=== PATIENT | male | born 1965 | race Caucasian/White ===

== ENCOUNTER 2022-07-12 23:31 | Emergency (ER) | payer BC, SELFPAY ==
[2022-07-12 23:39] VITALS: BP 156/92; PULSE 107; RESP 18; O2SAT 97
--- NOTE | 2022-07-12 23:50 | PC.NURSE ---
Patient provided with orange juice, coca-cola, crackers. BG 210. Patient with personal BG monitor and is monitoring sugar. Patient states he will alert staff if his sugars drop. MD aware of blood sugar and amount of insulin given.
--- NOTE | 2022-07-13 00:40 | PC.NURSE ---
Per brianna Lambert for patient to use personal blood glucose monitoring device.
--- NOTE | 2022-07-13 00:57 | ED_ITS ---
HPI - Male Genitourinary General Chief complaint: Diabetic Related Problem Stated complaint: Diabetic, took wrong insulin Time Seen by Provider: 07/12/22 23:49 History of Present Illness HPI Narrative: Patient presents after accidentally taking 44 units of his NovoLog instead of his Lantus. Patient states that he is typically very careful with this and has only made this mistake once previously. He had significant hypoglycemia after doing so in the past, therefore he presents to the emergency department out of concern that this will happen again. Blood sugar was approximately 250 at dinner time, which was about 2 hours prior to accidentally taking the higher dose of insulin. He typically does 3 times daily of his NovoLog with meals and 44 units of Lantus daily. Patient has a continuous glucose monitor. He had a typical dinner about 3 hours prior to taking the insulin. No recent illness, no fevers. No neurological changes noted. He is accompanied by his significant other. He has type 1 diabetes, no insulin resistance. 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 He has several other members of his family with type 1 diabetes. Blood sugar in triage was 211. No recent hypoglycemia. He does not also have an insulin pump. Past medical history is really only notable for the type 1 diabetes, no other major long-term health problems. Medications reviewed and updated, consistent with a line records. No history of significant heart disease, neurological disorders. Related Data Home Medications Medication Instructions Recorded Confirmed amitriptyline 25 mg tablet mg 07/12/22 atorvastatin 20 mg tablet mg 07/12/22 insulin aspart U-100 100 unit/mL subcut 07/12/22 (3 mL) subcutaneous pen (Novolog Flexpen U-100 Insulin aspart) insulin glargine 100 unit/mL (3 unit subcut 07/12/22 mL) subcutaneous pen (Lantus Solostar U-100 Insulin) lisinopril 5 mg tablet mg 07/12/22 sildenafil 100 mg tablet mg 07/12/22 Allergies Allergy/AdvReac Type Severity Reaction Status Date / Time Penicillins Allergy Verified 07/12/22 23:43 [facility] Social History Smoking Status: Never smoker How often do you have a drink containing alcohol: 2-3 times a week How many standard drinks containing alcohol do you have on a typical day: 3 or 4 How often do you have six or more drinks on one occasion: Never AUDIT-C Alcohol total score: 4 Non-prescribed substance use: denies use Exam Const: Vital Signs, click to edit/add: Vital Signs - 24 hr 07/12/22 23:39 Pulse Rate [Right Pulse Oximeter] 107 H Respiratory Rate 18 Blood Pressure [Ri ght Upper Arm] 156/92 H Pulse Oximetry 97 Oxygen Delivery Me thod Room Air Documenting provider has reviewed patient's vital signs: yes Common normals: no apparent distress and alert General appearance: cooperative Orientation/consciousness: Yes awake HENMT: Common normals: normocephalic Head and scalp: normocephalic Mouth: oral and palatal mucosa normal Eye: Common normals: EOMs intact bilaterally and conjunctivae normal Conjunctiva: conjunctiva(e) normal Neck & C-Spine: Common normals: full ROM and no lymphadenopathy Resp: Common normals: normal respiratory effort and clear to auscultation bilaterally Effort & inspection: able to speak in complete sentences Auscultation: clear to auscultation bilaterally Cardio: Common normals: regular rate, regular rhythm, no murmurs and peripheral pulses 2+ throughout Rate: regular rate Rhythm: regular rhythm Peripheral pulses: pulses 2+ throughout GI: Common normals: Normal to inspection, nondistended, normoactive bowel sounds present Neuro: Sensorium/orientation: awake and alert Speech: speech normal Gait (neuro): normal gait Motor exam: strength 5/5 throughout Psych: Common normals: thought process normal and speech normal Attitude: calm and engaged Activity/motor behavior: appropriate eye contact Speech: normal speech Mood and affect: euthymic mood Thought process: normal thought process Insight: insight good Judgement: judgment good Skin: Common normals: no rashes or lesions noted General skin exam: no rashes or lesions noted Course Vital Signs Vital signs: Initial Vital Signs Pulse Rate 107 H 07/12/22 23:39 Respiratory Rate 18 07/12/22 23:39 Blood Pressure 156/92 H 07/12/22 23:39 Blood Pressure Mean 113 07/12/22 23:39 Blood Pressure Position Supine 07/12/22 23:39 Pulse Oximetry 97 07/12/22 23:39 Oxygen Delivery Method 07/12/22 23:39 Vital Signs Pulse Rate 107 H 07/12/22 23:39 Respiratory Rate 18 07/12/22 23:39 Blood Pressure 156/92 H 07/12/22 23:39 Pulse Oximetry 97 07/12/22 23:39 Oxygen Delivery Method 07/12/22 23:39 Pulse Rate 107 H 07/12/22 23:39 Respiratory Rate 18 07/12/22 23:39 Blood Pressure 156/92 H 07/12/22 23:39 Pulse Oximetry 97 07/12/22 23:39 Oxygen Delivery Method 07/12/22 23:39 MDM - Male Genitourinary MDM Narrative Medical decision making narrative: No signs of non accidental insulin administration. Blood sugars monitored with patient's home continuous glucose monitor. Was given half of a dose of D50 when blood sugar was in the 80s, rebounded quickly to the 140s. He has been eating and drinking normally. Blood sugar stabilized nicely after about 3 hours, as expected. Blood sugars continue to stay elevated without additional interventions. Home management and plan of care discussed. One hundred fifty at 2:45, 160 use at 3:00 a.m. consistently over 140 over 45 minutes, steadily increasing. Discharge Plan Discharge Clinical Impression: Accidental overdose of insulin Patient Disposition: Home w/ Parent or Adult Condition: Improved Instructions: Hypoglycemia in a Person with Diabetes (ED) Additional Instructions: Your insulin should be wearing off for the most part. I do want you to go ahead and take your typical dose of Lantus. Do not go to sleep unless your blood sugar is over 150 checked 2 times, at least 15 minutes apart, and that your blood sugar is no longer dropping rapidly. Try to eat something with a significant amount of protein also. Continue using your continuous glucose monitor, ensure that someone can stay with you and help with any low blood sugar alert. Activity Level: No Restrictions Discharge Diet: Diabetic Prescriptions: No Action atorvastatin 20 mg tablet Label Comments: TAKE ONE TABLET BY MOUTH ONE TIME DAILY sildenafil 100 mg tablet Label Comments: take 0.5 - 1 tablet by mouth 30 minutes - 4 hours prior to sexual activity. max 1 tablet daily. amitriptyline 25 mg tablet Label Comments: TAKE ONE TABLET BY MOUTH ONE TIME DAILY AT BEDTIME lisinopril 5 mg tablet Label Comments: TAKE ONE TABLET BY MOUTH ONE TIME DAILY IN THE EVENING. insulin aspart U-100 [Novolog Flexpen U-100 Insulin] 100 unit/mL (3 mL) insulin pen SUBCUT Label Comments: INJECT 6-8 UNITS SUBCUTANEOUSLY IN THE MORNING, 12 UNITS WITH LUNCH, AND 13 UNITS WITH DINNER. ADJUST FOR CARB INTAKE AND BLOOD SUGAR LEVEL insulin glargine [Lantus Solostar U-100 Insulin] 100 unit/mL (3 mL) insulin pen SUBCUT Label Comments: inject up to 44 units by subcutaneous route daily Stand Alone Forms: [facility] Info Instructions
[2022-07-13] MEDS: DEXTROSE 50 % SYRINGE IVP (01:27)
== END 2022-07-13 03:10 | disposition home or self-care (01) ==
PROVIDERS: Emergency Provider Family Medicine
DX: T38.3X1A Poisoning by insulin and oral hypoglycemic [antidiabetic] drugs, accidental (unintentional), initial encounter (principal)
CPT/HCPCS: 82962; 99282; 99283

== ENCOUNTER 2025-01-29 10:37 | Outpatient (CLI) | payer OTHER, SELFPAY ==
--- NOTE | 2025-01-29 12:09 | P.ANES_ITS ---
Anesthesia Charges Start Date/Time Anesthesia Start Date: 01/29/25 Anesthesia Start Time: 11:45 Stop Date/Time Anesthesia Stop Date: 01/29/25 Anesthesia Stop Time: 12:09 Coding CPT Codes CPT Codes: GAURIS LWR INTST NDSC NOS - 93451 ([id number]) P2 - PATIENT W/MILD SYST DISEASE, QZ - FORMER HAND SVC W/O [place] MAKEUP ARTIST BY
--- NOTE | 2025-01-29 12:09 | W.ANESCHARGE ---
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
== END 2025-01-29 10:38 | disposition home or self-care (01) ==
LOC: OP CLINIC 10:40
PROVIDERS: PCP Internal Medicine Endocrinology, Diabetes & Metabolism; Visit Provider Internal Medicine Gastroenterology
DX: Z12.11 Encounter for screening for malignant neoplasm of colon (principal); D12.4 Benign neoplasm of descending colon; Z86.0101 Personal history of adenomatous and serrated colon polyps; Z80.0 Family history of malignant neoplasm of digestive organs
CPT/HCPCS: 00811; 45385; 88305; J2704